=== PATIENT | male | born 1985 | race Caucasian/White ===

== ENCOUNTER 2023-12-20 16:45 | Emergency (ER) | payer MEDICAID ==
[~2023-12-20] VITALS: Ht 193 cm; Wt 100.6 kg
[2023-12-20 16:49] VITALS: BP 160/62; PULSE 110; RESP 16; TEMP 98; O2SAT 98
== END 2023-12-20 17:48 | disposition home or self-care (01) ==
LOC: ER 16:46
DX: R07.89 Other chest pain (principal); Z88.8 Allergy status to other drugs, medicaments and biological substances; V89.2XXA Person injured in unspecified motor-vehicle accident, traffic, initial encounter; Y93.89 Activity, other specified; Y92.89 Other specified places as the place of occurrence of the external cause; Y99.8 Other external cause status
CPT/HCPCS: 71045; 99283

== ENCOUNTER 2025-07-18 10:12 | Outpatient (CLI) | payer MEDICAID ==
--- NOTE | 2025-07-18 15:00 | ELECTROCARDIOGRAPH REPORT ---
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 JEAN CLAUDE Jarrell Measurements Intervals [place] Rate: 95 P: -21 MA: 154 QRS: 225 QRSD: 111 T: 8 QT: 359 QTc: 452 Interpretive Statements Sinus rhythm Inferior infarct, old Electronically Signed On 07-18-2025 16:53:[address] JEAN CLAUDE Jarrell Please click the below link to view image of tracing.
== END 2025-07-18 23:59 | disposition home or self-care (01) ==
LOC: RAD 10:12
PROVIDERS: ATTEND Physician Assistant
DX: F11.20 Opioid dependence, uncomplicated (principal); I25.2 Old myocardial infarction
CPT/HCPCS: 93005

== ENCOUNTER 2025-08-21 13:09 | Outpatient (CLI) | payer MEDICAID ==
--- NOTE | 2025-08-21 14:54 | ELECTROCARDIOGRAPH REPORT ---
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 Jessica Aponte Measurements Intervals [place] Rate: 88 P: 67 SC: 155 QRS: -43 QRSD: 102 T: 51 QT: 363 QTc: 440 Interpretive Statements Sinus rhythm Left axis deviation Electronically Signed On 08-21-2025 16:27:[address] Jessica Aponte Please click the below link to view image of tracing.
== END 2025-08-21 23:59 | disposition home or self-care (01) ==
LOC: RAD 13:09
PROVIDERS: ATTEND Physician Assistant
DX: F11.20 Opioid dependence, uncomplicated (principal)
CPT/HCPCS: 93005

== ENCOUNTER 2025-08-21 13:55 | Emergency (ER) | payer MEDICAID ==
[~2025-08-21] VITALS: Ht 193 cm; Wt 98.2 kg
[2025-08-21 13:58] VITALS: BP 134/83; PULSE 90; RESP 16; TEMP 97.5; O2SAT 100
--- NOTE | 2025-08-21 14:11 | Physician Documentation ---
History of Present Illness ~ Chief Complaint: Medical Clearance Stated Complaint: MED CLEARANCE Time Seen by MD: 14:03 HPI Is a 40-year-old male that presents to the emergency department for evaluation for medical clearance so that he can attend [facility]. Patient denies any fever chills nausea vomiting diarrhea injury illness or any other symptoms at this time. Patient appears to be well at this time. No other symptoms reported. Medication Reconciliation Allergies: Coded Allergies: meperidine (Verified Allergy, Unknown, 08/21/25) Review of Systems ROS As stated above in the HPI, otherwise all systems are reviewed and negative. Physical Exam Vital Signs: Temperature: 97.5, Source: Temporal, Heart Rate: 90, Respiratory Rate: 16, BP: 134/83, Pulse Oximetry: 100, Weight: 98.200 Oxygen Flow Rate: 0 Physical Exam VITALS: Reviewed and as above. GENERAL: Alert, no apparent distress. HEENT: Normocephalic, atraumatic, PERRL, EOMI, dry mucosa, no erythema RESPIRATORY: Lungs clear, normal breath sounds, no respiratory distress. CHEST: No accessory muscle use, no retractions CV: Regular rate, rhythm, no edema, no murmur, No: JVD GI: Soft, non-tender, bowels sounds present, no rebound, guarding, or rigidity BACK: No CVA tenderness, or swelling MUSCULOSKELETAL No deformities, no edema SKIN: Warm and dry, no rash NEURO: Oriented x4, No motor or sensory deficit PSYCH: Normal mood and affect, no agitation Progress Results/Orders Results/Orders Vital Signs 08/21/25 13:58 Temp 97.5 Pulse 90 Resp 16 B/P (MAP) 134/83 Pulse Ox 100 O2 Flow Rate 0 Medical Decision Making Additional information obtaine: other Findings Is a 40-year-old male that presents to the emergency department for evaluation for medical clearance so that he can attend [facility]. Patient denies any fever chills nausea vomiting diarrhea injury illness or any other symptoms at this time. Patient appears to be well at this time. No other symptoms reported. Differential Dx:Considerations: Include: Intoxication-Alcohol, Intoxication- Other drug, Personality disorder, Substance abuse disorder, Acute delirium, Closed head injury, Cervical spine injury, Skull fracture, Fracture(s), Abrasion, Contusion, Foreign body, Hematoma, Laceration, Alcohol withdrawl syndrom, Encephalopathy, Hepatitis, Medically stable, Other Departure Disposition: HOME / SELF CARE / HOMELESS Impression: Primary Impression: General medical exam Condition: Stable Discharge Instructions: Medical Screening Exam Additional Instructions: Is a 40-year-old male that presents to the emergency department for evaluation for medical clearance so that he can attend [facility]. Patient denies any fever chills nausea vomiting diarrhea injury illness or any other symptoms at this time. Patient appears to be well at this time. No other symptoms reported. Patient has been thoroughly evaluated here in the emergency department. Patient is medically cleared to [facility]. Referrals: NO PRIMARY CARE PROVIDER (PCP) Education Educated: Patient Educated regarding: diagnosis, treatment, need for follow up Signature Scribe Signature: A Attestation: Scribed for Eric Davidson by RICHMOND Prado . 08/21/25 14:11 ERIC DAVIDSON Aug 21, 2025 14:11
== END 2025-08-21 14:30 | disposition home or self-care (01) ==
LOC: ER 13:56
DX: Z00.00 Encounter for general adult medical examination without abnormal findings (principal); Z88.5 Allergy status to narcotic agent
CPT/HCPCS: 99282